=== PATIENT | female | born 1995 | race Hispanic/Latino ===

== ENCOUNTER 2017-02-21 02:02 | Emergency (ER) | payer BC, MEDICAID ==
[2017-02-21 03:25] VITALS: BMI 25.4
[2017-02-21] MEDS ORDERED: Lidocaine 1% Inj (20ml) IJ STA (03:26)
[2017-02-21 03:45] VITALS: RESP 18
[2017-02-21] MEDS ORDERED: Lidocaine 1% Inj (20ml) ONE (03:55)
--- NOTE | 2017-02-21 04:37 | ED PDOC ---
HPI: Trauma/Fall - HPI Time Seen by Provider: 02/21/17 03:10 Chief Complaint (Nursing): Abnormal Skin Integrity Chief Complaint (Provider): laceration History Per: Patient History/Exam Limitations: no limitations Additional Complaint(s): 21yo F in ER with laceration to right foot plantar surface sustained this morning after stepping on glass. pt is intoxicated. admits to pain unable to bear wght. Pt is uptodate with tetatnus. Past Medical History Reviewed: Historical Data, Nursing Documentation, Vital Signs Vital Signs: Last Vital Signs Temp 97.7 F 02/21/17 02:28 Pulse 106 H 02/21/17 02:28 Resp 18 02/21/17 02:28 BP 117/70 02/21/17 02:28 Pulse Ox 99 02/21/17 02:28 - Family History Family History: States: No Known Family Hx - Home Medications Home Medications: Ambulatory Orders Medication Instructions Recorded Clindamycin [Cleocin] 300 mg PO TID #30 cap 02/21/17 - Allergies Allergies/Adverse Reactions: Allergies Allergy/AdvReac Type Severity Reaction Status Date / Time No Known Allergies Allergy Verified 02/21/17 03:27 Review of Systems ROS Statement: Except As Marked, All Systems Reviewed And Found Negative Constitutional: Negative for: Fever, Chills Physical Exam - Reviewed Nursing Documentation Reviewed: Yes Vital Signs Reviewed: Yes - Physical Exam Appears: Positive for: Non-toxic, No Acute Distress Skin: Positive for: Normal Color, Warm, DRY Cardiovascular/Chest: Positive for: Regular Rate, Rhythm Respiratory: Positive for: CNT, Normal Breath Sounds Extremity: Positive for: Other (right foot: plantar surface-laceration noted at 3/4th digi 1.5 cm partial thickness active bleeding. ) Neurologic/Psych: Positive for: Alert, Oriented - ECG O2 Sat by Pulse Oximetry: 99 - Radiology X-Ray: Interpreted by Me - Progress ED Course And Treament: pt and family requesting podiatry consult for laceration repair. podiatry consulted. Medical Decision Making Medical Decision Making: podiatry here to provide pt with laceration repair with f.u at clinic. Disposition - Clinical Impression Clinical Impression: Laceration - Patient ED Disposition Is Patient to be Admitted: No Counseled Patient/Family Regarding: Studies Performed, Diagnosis, Need For Followup, Rx Given - Disposition Referrals: Podiatry Clinic [Outside] Disposition: Routine/Home Disposition Time: 05:31 Condition: STABLE Prescriptions: Clindamycin [Cleocin] 300 mg PO TID #30 cap Instructions: Laceration (ED), Care For Your Stitches (ED) Forms: [facility] ([place])
[2017-02-21 08:10] VITALS: BP 128/78; PULSE 78; TEMP 97.5; O2SAT 98
--- NOTE | 2017-02-21 08:55 | CP.PCM.CON ---
History of Present Illness - History of Present Illness History of Present Illness: ED Consult- Dr. Aaron 21 y.o female with PMH of bipolar presents to the ED with left foot laceration. She is accompanied by her mother and father. Patient states at 2am this [place] intoxicated, she stepped on a glass. She reports during the time she was not wearing any shoe wear. She rates her pain 2/10 and describes the pain as a throbbing pain. Patient reports the pain medication given in the ED is helping her. Prior to medication, 12/31. Patient denies nausea, vomiting, shortness of breath, chills, chest pains, or fever. Patient reports that her tetanus is uptodate. PMH: bipolar PSH: adenoids removal, tonsillectomy Meds: see medication list FH: father- hypertension, high cholesterol SH: denies smoking, denies elicited drug, reports socially drinking ALL: NKDA ROS: left foot pain Review of Systems - Constitutional Constitutional: As Per HPI Past Patient History - Past Social History Smoking Status: Light Smoker < 10 Cigarettes Daily - PSYCHIATRIC Hx Substance Use: No - ANESTHESIA Hx Anesthesia: No Meds Home Medications: Home Medication List Medication Instructions Recorded Confirmed Type Clindamycin [Cleocin] 300 mg PO TID #30 cap 02/21/17 Rx Allergies/Adverse Reactions: Allergies Allergy/AdvReac Type Severity Reaction Status Date / Time No Known Allergies Allergy Verified 02/21/17 03:27 Physical Exam - Constitutional Appears: Well, Non-toxic, No Acute Distress - Extremities Exam Additional comments: Vasc: DP and PT 2/4 bilaterally, 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 Base is granular, no odor, no drainage, no active bleeding. Plantar ulceration measuring approximately approximately 1 x 1 .1 cm, granular in base, with skin deficit noted. Base is granular, no odor, no drainage, no active bleeding. Results - Vital Signs Recent Vital Signs: Last Vital Signs Temp 97.5 F L 02/21/17 08:09 Pulse 78 02/21/17 08:09 Resp 18 02/21/17 08:09 BP 128/78 02/21/17 08:09 Pulse Ox 98 02/21/17 08:09 Assessment & Plan - Assessment and Plan (Free Text) Assessment: 21 y.o female with PMH of bipolar presents to the ED with left foot laceration secondary to stepping on glass. Plan: -Patient was examined and evaluated in the ED -Charts and vitals reviewed. -Discussed plan in detail with attending Dr. Aaron -X-rays taken and reviewed by me- no glass object can be appreciated, no bony pathology appreciated. No gas emphysema. -Local injection a total of 13 cc of lidocaine 1% plain to the site of laceration left foot. -Copious amounts of betadine mix saline solution to site of injury -Laceration primary closed with prolene 3-0. Patient tolerated well without complications -Ulceration was dressed with xeroform. -Entire left foot was dressed with dsd, kerlix, and MARYANNE. Dressing to be c/d/i. Do not get wet. -NWB in crutches with surgical shoe. -Instructed on RICE protocol -Rx Abx per ED -Advised OTC Ibuprofen for pain management -Will f/u in clinic Friday. Patient reports may f/u with outside packerhead machine operator since they are not from local area -Educated on signs of infection. Return to emergency if present. -Thank you for the consult.
--- NOTE | 2017-02-21 09:56 | RAD ---
PROCEDURE: Right Foot Radiographs. HISTORY: foot injury COMPARISON: None. FINDINGS: BONES: Normal. No fracture. JOINTS: Normal. SOFT TISSUES: No radiopaque foreign body. OTHER FINDINGS: None. IMPRESSION: No radiopaque foreign body.
== END 2017-02-21 08:10 | disposition home or self-care (01) ==
LOC: H.ER 02:02
DX: S91.311A Laceration without foreign body, right foot, initial encounter (principal); F17.210 Nicotine dependence, cigarettes, uncomplicated; S91.312A Laceration without foreign body, left foot, initial encounter; W25.XXXA Contact with sharp glass, initial encounter